=== PATIENT | female | born 1970 | race Caucasian/White ===

== ENCOUNTER 2016-12-08 09:10 | Emergency (ER) | payer BC ==
[2016-12-08 09:23] VITALS: BP 139/88
[2016-12-08] MEDS ORDERED: NS 0.9% 1000 ML* 1,000 ML IV ONE (09:52)
--- NOTE | 2016-12-08 10:27 | RAD ---
INDICATION: Chest pain. Cough COMPARISON: May 06, 2013 TECHNIQUE: An AP portable view obtained at 1015 hours is submitted. FINDINGS: Bones/Soft Tissues: There are no acute bony findings. Cardiomediastinal: The cardiomediastinal silhouette is normal. Lungs: There are no infiltrates. Pleura: There are no pleural effusions. Other: None IMPRESSION: NO ACTIVE DISEASE.
[2016-12-08 10:46] LABS: Hematocrit 45 % (35-47); Hemoglobin 15.3 g/dl (12.0-16.0); Mean Corpuscular HGB Conc 34 g/dl (31-36); Mean Corpuscular Hemoglobin 32 pg (27-31); Mean Corpuscular Volume 95 fL (80-97); Mean Platelet Volume 9 um3 (7.4-10.4); Red Blood Count 4.76 10^6/ul (4.0-5.4); Red Cell Distribution Width 13 % (10.5-15); White Blood Count 6.8 10^3/ul (3.5-10.8)
[2016-12-08 11:01] LABS: Albumin 4.2 g/dL (3.2-5.2); BUN/Creatinine Ratio 13.3 (8-20); C Reactive Protein 4.37 mg/L (< 5.00); Calcium 9.2 mg/dL (8.6-10.3); EGFR Non-African American 83.2 (>60); Globulin 2.7 g/dL (2-4); Potassium 4.2 mmol/L (3.5-5.0); Total Bilirubin 0.6 mg/dL (0.2-1.0); Total Protein 6.9 g/dL (6.4-8.9)
[2016-12-08] MEDS ORDERED: Albuterol/Ipratropium NEB.SOL* Albuterol 2.5 MG/Ipratropium 0.5 MG 3 ML INH ONE (11:14)
[2016-12-08 11:16] LABS: TSH (Thyroid Stimulating Horm) 1.61 mcIU/mL (0.34-5.60)
[2016-12-08] MEDS ORDERED: Ketorolac INJ* 30 MG/ML 1 ML VIAL IV ONE (11:19)
--- NOTE | 2016-12-08 12:47 | ED ---
Alexander Carrillo Benjamin, scribed for Sony Thakkar MD on 12/08/16 at 0956 . Shortness of Breath - HPI Summary HPI Summary: 46yo female c/o sudden onset of left rib pain and SOB this morning around 0830 immediately after coughing. Pt had cold like symptoms for couple of weeks, but without any fever. Pt is not SOB now. Pain was 10 at the time of onset but now it is 6. Pt states that it feels like pulled muscle. Pt took 2 pills of advil immediately after onset (1 hour 20 minutes ago). Deep breaths, cough, and movement make her pain worse. No hx of PE, not on blood thinner. Pt previously had nonproductive cough but today is having productive cough with phlegm. - History of Current Complaint Chief Complaint: EDShortnessOfBreath Time Seen by Provider: 12/08/16 09:43 Hx Obtained From: Patient Onset/Duration: Lasting Hours - since 0830am today, Still Present Timing: Intermittent Episodes Lasting: - several minutes. Current Severity: None Dyspnea At: Rest Alleviating Factors: Spontaneous Resolution Associated Signs & Symptoms: Cough (Productive), Cough (Nonproductive), Chest Pain w/Cough - left rib pain - Allergy/Home Medications Allergies/Adverse Reactions: Allergies Allergy/AdvReac Type Severity Reaction Status Date / Time Amoxicillin [From Augmentin] Allergy Severe throat Verified 12/08/16 09:12 swelling Clavulanic Acid Allergy Severe throat Verified 12/08/16 09:12 [From Augmentin] swelling PMH/Surg Hx/FS Hx/Imm Hx Respiratory History: Reports: Hx Chronic Obstructive Pulmonary Disease (COPD) - Surgical History Surgery Procedure, Year, and Place: cryo therapy. ablation. cyst removals. tubal ligation Infectious Disease History: No Infectious Disease History: Denies: Traveled Outside the [place] in Last 30 Days - Family History Known Family History: Positive: Hypertension - Social History Occupation: Employed Full-time Lives: With Family Alcohol Use: Daily Alcohol Amount: 2 glasses of wine Substance Use Type: Reports: None Smoking Status (MU): Light Every Day Tobacco Smoker Type: Cigarettes Amount Used/How Often: 1 pack daily Review of Systems Constitutional: Negative Negative: Fever Eyes: Negative ENT: Negative Cardiovascular: Negative Positive: Shortness Of Breath, Cough Gastrointestinal: Negative Genitourinary: Negative Positive: Other - left rib pain Skin: Negative Neurological: Negative Psychological: Normal All Other Systems Reviewed And Are Negative: Yes Physical Exam Triage Information Reviewed: Yes Vital Signs On Initial Exam: Initial Vitals Temp Pulse Resp BP Pulse Ox 98.3 F 82 20 144/85 95 12/08/16 09:12 12/08/16 09:12 12/08/16 09:12 12/08/16 09:12 12/08/16 09:12 Vital Signs Reviewed: Yes Appearance: Positive: Well-Appearing, Well-Nourished, Pain Distress - mild respiratory distress Skin: Positive: Warm, Skin Color Reflects Adequate Perfusion, Dry Head/Face: Positive: Normal Head/Face Inspection Eyes: Positive: Normal ENT: Positive: Normal ENT inspection Neck: Positive: Supple, Nontender Respiratory/Lung Sounds: Positive: Rhonchi - left, Wheezes - bilateral Cardiovascular: Positive: RRR, Pulses are Symmetrical in both Upper and Lower Extremities Abdomen Description: Positive: Nontender, Soft Bowel Sounds: Positive: Present Musculoskeletal: Positive: Strength/ROM Intact Neurological: Positive: Sensory/Motor Intact, Alert, Oriented to Person Place, Time, CN Intact II-III - Maikel Coma Scale Coma Scale Total: 15 Diagnostics - Vital Signs Vital Signs Temp Pulse Resp BP Pulse Ox 12/08/16 09:33 75 16 89 12/08/16 09:21 99.0 F 78 18 139/88 92 12/08/16 09:12 98.3 F 82 20 144/85 95 - Laboratory Lab Results: Lab Results 12/08/16 12/08/16 12/08/16 Range/Units 10:25 10:25 10:25 WBC 6.8 (3.5-10.8) 10^3/ul RBC 4.76 (4.0-5.4) 10^6/ul Hgb 15.3 (12.0-16.0) g/dl Hct 45 (35-47) % MCV 95 (80-97) fL MCH 32 H (27-31) pg MCHC 34 (31-36) g/dl RDW 13 (10.5-15) % Plt Count 235 (150-450) 10^3/ul MPV 9 (7.4-10.4) um3 Neut % (Auto) 70.0 (38-83) % Lymph % (Auto) 20.6 L (25-47) % Coke % (Auto) 7.2 (1-9) % Eos % (Auto) 1.4 (0-6) % Baso % (Auto) 0.8 (0-2) % Absolute Neuts (auto) 4.7 (1.5-7.7) 10^3/ul Absolute Lymphs (auto) 1.4 (1.0-4.8) 10^3/ul Absolute Monos (auto) 0.5 (0-0.8) 10^3/ul Absolute Eos (auto) 0.1 (0-0.6) 10^3/ul Absolute Basos (auto) 0.1 (0-0.2) 10^3/ul Absolute Nucleated RBC 0 10^3/ul Nucleated RBC % 0.1 INR (Anticoag Therapy) 0.91 (0.89-1.11) APTT 32.6 (26.0-36.3) seconds D-Dimer, Quantitative < 200 (Less Than 230) ng/mL Sodium 138 (133-145) mmol/L Potassium 4.2 (3.5-5.0) mmol/L Chloride 104 (101-111) mmol/L Carbon Dioxide 29 (22-32) mmol/L Anion Gap 5 (2-11) mmol/L BUN 10 (6-24) mg/dL Creatinine 0.75 (0.51-0.95) mg/dL Est GFR ( Amer) 107.0 (>60) Est GFR (Non-Af Amer) 83.2 (>60) BUN/Creatinine Ratio 13.3 (8-20) Glucose 93 (70-100) mg/dL Lactic Acid (0.5-2.0) mmol/L Calcium 9.2 (8.6-10.3) mg/dL Total Bilirubin 0.60 (0.2-1.0) mg/dL AST 15 (13-39) U/L ALT 14 (7-52) U/L Alkaline Phosphatase 79 (34-104) U/L Total Creatine Kinase 67 (10-223) U/L CK-MB (CK-2) 2.1 (0.6-6.3) ng/mL Troponin I 0.00 (<0.04) ng/mL C-Reactive Protein 4.37 (< 5.00) mg/L B-Natriuretic Peptide ( - 100) pg/mL Total Protein 6.9 (6.4-8.9) g/dL Albumin 4.2 (3.2-5.2) g/dL Globulin 2.7 (2-4) g/dL Albumin/Globulin Ratio 1.6 (1-3) Lipase 28 (11.0-82.0) U/L TSH 1.61 (0.34-5.60) mcIU/mL 12/08/16 12/08/16 Range/Units 10:25 10:25 WBC (3.5-10.8) 10^3/ul RBC (4.0-5.4) 10^6/ul Hgb (12.0-16.0) g/dl Hct (35-47) % MCV (80-97) fL MCH (27-31) pg MCHC (31-36) g/dl RDW (10.5-15) % Plt Count (150-450) 10^3/ul MPV (7.4-10.4) um3 Neut % (Auto) (38-83) % Lymph % (Auto) (25-47) % Coke % (Auto) (1-9) % Eos % (Auto) (0-6) % Baso % (Auto) (0-2) % Absolute Neuts (auto) (1.5-7.7) 10^3/ul Absolute Lymphs (auto) (1.0-4.8) 10^3/ul Absolute Monos (auto) (0-0.8) 10^3/ul Absolute Eos (auto) (0-0.6) 10^3/ul Absolute Basos (auto) (0-0.2) 10^3/ul Absolute Nucleated RBC 10^3/ul Nucleated RBC % INR (Anticoag Therapy) (0.89-1.11) APTT (26.0-36.3) seconds D-Dimer, Quantitative (Less Than 230) ng/mL Sodium (133-145) mmol/L Potassium (3.5-5.0) mmol/L Chloride (101-111) mmol/L Carbon Dioxide (22-32) mmol/L Anion Gap (2-11) mmol/L BUN (6-24) mg/dL Creatinine (0.51-0.95) mg/dL Est GFR ( Amer) (>60) Est GFR (Non-Af Amer) (>60) BUN/Creatinine Ratio (8-20) Glucose (70-100) mg/dL Lactic Acid 1.1 (0.5-2.0) mmol/L Calcium (8.6-10.3) mg/dL Total Bilirubin (0.2-1.0) mg/dL AST (13-39) U/L ALT (7-52) U/L Alkaline Phosphatase (34-104) U/L Total Creatine Kinase (10-223) U/L CK-MB (CK-2) (0.6-6.3) ng/mL Troponin I (<0.04) ng/mL C-Reactive Protein (< 5.00) mg/L B-Natriuretic Peptide 25 ( - 100) pg/mL Total Protein (6.4-8.9) g/dL Albumin (3.2-5.2) g/dL Globulin (2-4) g/dL Albumin/Globulin Ratio (1-3) Lipase (11.0-82.0) U/L TSH (0.34-5.60) mcIU/mL Result Diagrams: 12/08/16 10:25 12/08/16 10:25 Lab Statement: Any lab studies that have been ordered have been reviewed, and results considered in the medical decision making process. - Radiology CXR Xray Interpretation: No Acute Changes Radiology Interpretation Completed By: ED Physician - ED physician has reviewed this radiology report and agrees., Radiologist - EKG 1009 Cardiac Rate: NL - 56bpm EKG Rhythm: Sinus Bradycardia Ectopy: None EKG Interpretation: [place] ST depression in diffuse leads Re-Evaluation - Re-Evaluation First Eval Re-Evaluation Time: 11:19 Comment: Reviewed pts lab and imaging results with the pt. Second Eval Re-Evaluation Time: 12:25 Comment: Reviewed coagulation results with the pt. Course/Dx - Course Course Of Treatment: Reviewed pts medication and allergy lists. High blood pressure noted. DYSPNEA IMPROVED IN ED AFTER DUONEB. DISCUSSED RESULTS WITH PATIENT/. RX ALBUTEROL, ZPAC, PREDNISONE, TYLENOL #3. RETURN IF WORSE. - Diagnoses Provider Diagnoses: Chest pain, Bronchitis with bronchospasm Discharge - Discharge Plan Condition: Stable Disposition: HOME Prescriptions: Acetaminop/Codeine 30 MG TAB* [Tylenol/Codeine 30 MG TAB*] 1 tab PO Q6H PRN #15 tab MDD 4 PRN Reason: Pain Albuterol HFA INHALER* [Ventolin HFA Inhaler*] 2 puff INH Q4H PRN #1 mdi PRN Reason: Dyspnea Azithromyxin ROCK (NF) [Z-Rock (Zithromax) 250 mg tabs #6] 2 tab PO .TODAY, THEN 1 DAILY #6 tab predniSONE TAB* [Deltasone TAB*] 40 mg PO DAILY #6 tab Patient Education Materials: Acute Bronchitis (ED), How to Use a Nebulizer (ED) , Bronchospasm (ED), Wheezing (ED), Chest Pain (ED) Referrals: [facility] [Outside] Additional Instructions: FOLLOW UP WITH YOUR DOCTOR. RETURN TO THE EMERGENCY DEPARTMENT FOR ANY WORSENING OF YOUR CONDITION; PAIN, SHORTNESS OF BREATH, FEVERS OR QUESTIONS OR CONCERNS. The documentation as recorded by the Alexander norman Benjamin accurately reflects the service I personally performed and the decisions made by me, Sony Thakkar MD.
== END 2016-12-08 12:56 | disposition home or self-care (01) ==
LOC: ED 09:10
DX: R05 Cough (principal); R07.9 Chest pain, unspecified; R07.81 Pleurodynia; F17.210 Nicotine dependence, cigarettes, uncomplicated
CPT/HCPCS: 36415; 71010; 80053; 82550; 82553; 83605; 83690; 83880; 84443; 84484; 85025; 85379; 85610; 85730; 86140; 87040; 93005; 94640; 96374; 99282; A9270-GY; J1885